=== PATIENT | female | born 1985 | race African-American/Black ===

== ENCOUNTER 2018-08-29 23:07 | Emergency (ER) | payer SELFPAY ==
[~2018-08-29] VITALS: Ht 180.3 cm; Wt 65.0 kg
--- OUTSIDE RECORDS SUMMARY | 2018-08-29 23:10 | XMS REPORT | Clinical Summary ---
Author Author KELLY [facility] Organization [facility] Address Unknown Phone Unavailable Care Team Providers Care [employer] Operator Name Role Phone Sharpless PCP Allergies No Known Allergies Medications End Date Status Medication Sig Dispensed Refills Start Date Active ibuprofen (ADVIL,MOTRIN) Take 1 tablet 20 tablet 0 600 MG tablet (600 mg 7 total) by mouth every 6 (six) hours as needed for Pain for up to 20 doses. Active acetaminophen-codeine Take 1-2 15 tablet 0 (TYLENOL #3) 300-30 mg tablets by 7 per tablet mouth every 6 (six) hours as needed for Pain (WARNING CAUSES SEDATION) for up to 15 doses. Max Daily Amount: 8 tablets Active Problems Not on file Social History Date Tobacco Use Types Packs/Day Years Used Current Every Day Smoker Alcohol Use Drinks/Week oz/Week Comments No Sex Assigned at Date Recorded Not on file Industry Job Start Date Occupation Not on file Not on file Not on file Travel End Travel History Travel Start No recent travel history available. Last Filed Vital Signs Not on file Plan of Treatment Not on file Results Not on fileafter 08/28/2017
[2018-08-29] MEDS ORDERED: ONDANSETRON HCL INJ 2MG/ML 2ML 2 MG/ML VIAL IV STA (23:30)
[2018-08-29] MEDS ORDERED: INSULIN REGULAR, HUMAN 100 UNIT/1 ML 3ML VIAL IV ONE (23:30)
[2018-08-29] MEDS ORDERED: SODIUM CHLORIDE 0.9% 1000ML 1,000 ML IV SCH (23:30)
[2018-08-29] MEDS ORDERED: ONDANSETRON HCL INJ 2MG/ML 2ML 2 MG/ML VIAL ONE (23:57)
[2018-08-29] MEDS ORDERED: INSULIN REGULAR, HUMAN 100 UNIT/1 ML 3ML VIAL ONE (23:57)
--- NOTE | 2018-08-30 00:47 | Diagnostic Imaging Report ---
Examination: Single AP view of the chest. COMPARISON: None. INDICATION: Not feeling well IMPRESSION: 1. Lines and Tubes: None 2. Lungs are grossly clear. No consolidation or effusion. 3. Cardiomediastinal silhouette is normal. Pulmonary vasculature is normal. 4. No acute bony abnormalities. Signed by: Dr. Gene Rodriguez M.D. on 08/30/2018 12:44 AM
[2018-08-30] MEDS ORDERED: ACETAMINOPHEN 325 MG TAB PO ONE (01:00)
[2018-08-30 01:26] VITALS: BP 139/75
== END 2018-08-30 01:15 | disposition home or self-care (01) ==
LOC: FSED 23:07
DX: R11.2 Nausea with vomiting, unspecified (principal); R19.7 Diarrhea, unspecified; K52.9 Noninfective gastroenteritis and colitis, unspecified; E86.0 Dehydration; E10.65 Type 1 diabetes mellitus with hyperglycemia; F17.210 Nicotine dependence, cigarettes, uncomplicated
CPT/HCPCS: 71045; 80053; 81003; 81025; 82948; 85025; 96374; 96375; 99284; J1817; J2405